=== PATIENT | female | born 1975 | race Caucasian/White ===

== ENCOUNTER → 2016-11-04 | Outpatient (CLI) | payer BC ==
[~2016-11-04] MED LIST: DAYPRO600 M1 PO; HYDROCODONE BIT1 T11 PO; MOTRIN800 MG PO; NAPROSYN500 MG PO; NKHM; NORCO 5-325 TA1 EACH PO
== END | disposition home or self-care (01) ==
LOC: RESCLI 08:07
DX: K04.7 Periapical abscess without sinus (principal); E66.09 Other obesity due to excess calories; F17.200 Nicotine dependence, unspecified, uncomplicated; Z68.30 Body mass index [BMI] 30.0-30.9, adult

== ENCOUNTER 2016-11-10 16:03 | Emergency (ER) | payer BC ==
[~2016-11-10] VITALS: Ht 162.5 cm; Wt 77.1 kg
[~2016-11-10 16:03] MED LIST changes: -NAPROSYN500 MG PO; -NORCO 5-325 TA1 EACH PO
[2016-11-10 16:09] VITALS: BP 166/79
[2016-11-10 16:58] LABS: BASO % 0.4 % (0.0-1.0); EOS # 0.1 10*3/uL (0.0-0.4); EOS % 1.7 % (1.0-4.0); HEMATOCRIT 36.5 % (37.0-47.0); HEMOGLOBIN 12.6 g/dl (12.0-16.0); LYMPH # 2.4 10*3/uL (1.3-4.4); LYMPH % 31.5 % (27.0-41.0); MEAN CELL VOLUME 89.9 fl (81.0-99.0); MEAN CORPUSCULAR HGB CONC 34.5 g/dl (33.0-37.0); MONO # 0.5 10*3/uL (0.1-1.0); MONO % 5.9 % (3.0-9.0); NEUT # 4.6 10*3/uL (2.3-7.9); NEUT % 60.4 % (47.0-73.0); PLATELET COUNT AUTOMATED 226 10*3/uL (130-400); RED BLOOD COUNT 4.06 10*6/uL (4.10-5.10); RED CELL DISTRI WIDTH 12.5 % (0-14.5); WHITE BLOOD COUNT 7.6 10*3/uL (4.8-10.8)
[2016-11-10 17:14] LABS: ALBUMIN 3.8 gm/dl (3.1-4.5); ALKALINE PHOSPHATASE 109 U/L (45-117); BUN 6 mg/dl (7-24); CHLORIDE 105 mmol/L (98-107); CREATININE 0.68 mg/dL (0.55-1.02); POTASSIUM 3.8 mmol/L (3.5-5.1); SGOT/AST 20 IU/L (3-35); SGPT/ALT 33 U/L (12-78); SODIUM 140 mmol/L (136-145); TOTAL PROTEIN 6.9 gm/dL (6.4-8.2)
[2016-11-10] MEDS ORDERED: NORCO 5-325 TA1 EACH PO (18:33)
[2016-11-10] MEDS ORDERED: NAPROSYN500 MG PO (18:33)
== END 2016-11-10 19:00 | disposition home or self-care (01) ==
LOC: ED 16:03
PROVIDERS: Physician Assistant
DX: K08.89 Other specified disorders of teeth and supporting structures (principal); F17.200 Nicotine dependence, unspecified, uncomplicated; Z98.51 Tubal ligation status; Z98.890 Other specified postprocedural states

== ENCOUNTER 2017-01-04 00:33 | Emergency (ER) | payer BC ==
[~2017-01-04] VITALS: Ht 162.5 cm; Wt 79.4 kg
[~2017-01-04 00:33] MED LIST changes: +NAPROSYN500 MG PO; +NORCO 5-325 TA1 EACH PO
[2017-01-04 00:39] VITALS: BP 118/78
== END 2017-01-04 01:10 | disposition home or self-care (01) ==
LOC: ED 00:33
DX: S96.812A Strain of other specified muscles and tendons at ankle and foot level, left foot, initial encounter (principal); W10.8XXA Fall (on) (from) other stairs and steps, initial encounter; Y93.89 Activity, other specified; Y92.89 Other specified places as the place of occurrence of the external cause; Y99.8 Other external cause status

== ENCOUNTER → 2017-04-28 | Outpatient (CLI) | payer OTHER | END | disposition home or self-care (01) | LOC: RESCLI 02:23 | DX: Z12.31 Encounter for screening mammogram for malignant neoplasm of breast (principal); K21.9 Gastro-esophageal reflux disease without esophagitis; E66.9 Obesity, unspecified; Z87.891 Personal history of nicotine dependence ==

== ENCOUNTER → 2017-06-04 | Outpatient (CLI) | payer OTHER | END | disposition home or self-care (01) | LOC: MAMMO 01:25 | DX: Z12.31 Encounter for screening mammogram for malignant neoplasm of breast (principal) ==

== ENCOUNTER → 2018-05-11 | Outpatient (CLI) | payer OTHER | END | disposition home or self-care (01) | LOC: RAD 09:52 → RESCLI 09:52 | DX: M25.552 Pain in left hip (principal); E66.09 Other obesity due to excess calories; Z79.899 Other long term (current) drug therapy; Z88.8 Allergy status to other drugs, medicaments and biological substances ==

== ENCOUNTER → 2019-04-01 | Outpatient (CLI) | payer OTHER ==
[2019-04-01 08:03] LABS: BASO % 0.6 % (0.0-1.0); EOS # 0.1 10*3/uL (0.0-0.4); EOS % 1.3 % (1.0-4.0); HEMATOCRIT 39.5 % (37.0-47.0); HEMOGLOBIN 13.4 g/dl (12.0-16.0); LYMPH # 1.8 10*3/uL (1.3-4.4); LYMPH % 25.4 % (27.0-41.0); MEAN CELL VOLUME 91.6 fl (81.0-99.0); MEAN CORPUSCULAR HGB 31.1 pg (27.0-31.0); MEAN CORPUSCULAR HGB CONC 33.9 g/dl (33.0-37.0); MEAN PLATELET VOLUME 10.5 fl (9.6-12.3); MONO # 0.4 10*3/uL (0.1-1.0); MONO % 6.3 % (3.0-9.0); NEUT # 4.6 10*3/uL (2.3-7.9); NEUT % 66.1 % (47.0-73.0); PLATELET COUNT AUTOMATED 256 10*3/uL (130-400); RED BLOOD COUNT 4.31 10*6/uL (4.10-5.10); RED CELL DISTRI WIDTH 12.5 % (0-14.5)
== END | disposition home or self-care (01) ==
LOC: LAB 07:25
PROVIDERS: Nurse Practitioner Women's Health
DX: N93.9 Abnormal uterine and vaginal bleeding, unspecified (principal); R53.83 Other fatigue

== ENCOUNTER → 2019-04-15 | Outpatient (CLI) | payer OTHER | END | disposition home or self-care (01) | LOC: US 00:42 | DX: N83.201 Unspecified ovarian cyst, right side (principal); N93.9 Abnormal uterine and vaginal bleeding, unspecified ==

== ENCOUNTER → 2019-04-18 | Outpatient (CLI) | payer OTHER | END | disposition home or self-care (01) | LOC: MAMMO 00:54 | DX: Z12.31 Encounter for screening mammogram for malignant neoplasm of breast (principal) ==

== ENCOUNTER 2019-06-02 09:04 | Emergency (ER) | payer OTHER ==
[~2019-06-02] VITALS: Wt 82.6 kg
[2019-06-02] MEDS ORDERED: CONTRAVE ER 8-1 EACH PO (09:26)
[2019-06-02] MEDS ORDERED: SEASONIQUE PO (09:26)
[2019-06-02 09:36] LABS: BASO % 0.5 % (0.0-1.0); EOS # 0.1 10*3/uL (0.0-0.4); EOS % 1.8 % (1.0-4.0); HEMATOCRIT 38.6 % (37.0-47.0); HEMOGLOBIN 13.2 g/dl (12.0-16.0); LYMPH # 1.2 10*3/uL (1.3-4.4); LYMPH % 15.8 % (27.0-41.0); MEAN CELL VOLUME 89.8 fl (81.0-99.0); MEAN CORPUSCULAR HGB 30.7 pg (27.0-31.0); MEAN CORPUSCULAR HGB CONC 34.2 g/dl (33.0-37.0); MEAN PLATELET VOLUME 10.4 fl (9.6-12.3); MONO # 0.5 10*3/uL (0.1-1.0); MONO % 5.9 % (3.0-9.0); NEUT # 5.8 10*3/uL (2.3-7.9); NEUT % 75.7 % (47.0-73.0); PLATELET COUNT AUTOMATED 228 10*3/uL (130-400); RED CELL DISTRI WIDTH 12.9 % (0-14.5); WHITE BLOOD COUNT 7.6 10*3/uL (4.8-10.8)
[2019-06-02 09:46] LABS: ACT PARTIAL THROMBO TIME 22.9 SECONDS (20.0-32.1); INTERNATIONAL NORM RATIO 0.9 (2.0-3.5)
[2019-06-02 09:53] LABS: ALBUMIN 3.9 gm/dl (3.1-4.5); ALKALINE PHOSPHATASE 128 U/L (45-117); BUN 5 mg/dl (7-24); CHLORIDE 105 mmol/L (98-107); CREATININE 0.89 mg/dL (0.55-1.02); POTASSIUM 3.9 mmol/L (3.5-5.1); SGOT/AST 13 IU/L (3-35); SGPT/ALT 26 U/L (12-78); SODIUM 138 mmol/L (136-145); TOTAL PROTEIN 7.6 gm/dL (6.4-8.2)
[2019-06-02 09:56] LABS: TROPONIN I < 0.015 ng/ml (<0.045)
[2019-06-02 14:19] VITALS: BP 110/67
== END 2019-06-02 15:30 | disposition home or self-care (01) ==
LOC: ED 09:04
PROVIDERS: Emergency Medicine
DX: R06.02 Shortness of breath (principal); R42 Dizziness and giddiness; R07.89 Other chest pain; F17.200 Nicotine dependence, unspecified, uncomplicated; Z79.899 Other long term (current) drug therapy; Z98.890 Other specified postprocedural states

== ENCOUNTER 2019-10-16 10:48 | Emergency (ER) | payer OTHER ==
[~2019-10-16] VITALS: Ht 162.5 cm; Wt 87.1 kg
[~2019-10-16 10:48] MED LIST changes: +CONTRAVE ER 8-1 EACH PO; +SEASONIQUE PO
[2019-10-16 11:01] VITALS: BP 105/63
[2019-10-16] MEDS ORDERED: Motrin,Rufen800 MG PO (12:02)
== END 2019-10-16 12:10 | disposition home or self-care (01) ==
LOC: ED 10:48
DX: S92.355A Nondisplaced fracture of fifth metatarsal bone, left foot, initial encounter for closed fracture (principal); Z79.899 Other long term (current) drug therapy; W18.31XA Fall on same level due to stepping on an object, initial encounter; Y93.89 Activity, other specified; Y92.89 Other specified places as the place of occurrence of the external cause; Y99.8 Other external cause status

== ENCOUNTER → 2019-11-01 | Outpatient (CLI) | payer OTHER ==
[~2019-11-01] MED LIST changes: +Motrin,Rufen800 MG PO
== END | disposition home or self-care (01) ==
LOC: RAD 00:47
PROVIDERS: ATTEND Orthopaedic Surgery
DX: S92.352D Displaced fracture of fifth metatarsal bone, left foot, subsequent encounter for fracture with routine healing (principal); X58.XXXD Exposure to other specified factors, subsequent encounter

== ENCOUNTER → 2019-12-01 | Outpatient (CLI) | payer OTHER | END | disposition home or self-care (01) | LOC: RAD 00:16 | PROVIDERS: ATTEND Orthopaedic Surgery | DX: S92.352D Displaced fracture of fifth metatarsal bone, left foot, subsequent encounter for fracture with routine healing (principal); X58.XXXD Exposure to other specified factors, subsequent encounter ==

== ENCOUNTER → 2019-12-30 | Outpatient (CLI) | payer OTHER | END | disposition home or self-care (01) | LOC: RAD 00:45 | PROVIDERS: ATTEND Orthopaedic Surgery | DX: S92.352D Displaced fracture of fifth metatarsal bone, left foot, subsequent encounter for fracture with routine healing (principal); X58.XXXD Exposure to other specified factors, subsequent encounter ==

== ENCOUNTER → 2020-01-30 | Outpatient (CLI) | payer OTHER | END | disposition home or self-care (01) | LOC: RAD 01-29 10:43 | PROVIDERS: ATTEND Orthopaedic Surgery | DX: S92.352D Displaced fracture of fifth metatarsal bone, left foot, subsequent encounter for fracture with routine healing (principal); X58.XXXD Exposure to other specified factors, subsequent encounter ==

== ENCOUNTER → 2021-01-08 | Outpatient (CLI) | payer OTHER | END | disposition home or self-care (01) | LOC: US 00:45 | PROVIDERS: ATTEND Nurse Practitioner Primary Care | DX: K76.0 Fatty (change of) liver, not elsewhere classified (principal); R74.8 Abnormal levels of other serum enzymes ==

== ENCOUNTER → 2021-08-14 | Outpatient (CLI) | payer OTHER | END | disposition home or self-care (01) | LOC: RAD 09:27 | PROVIDERS: ATTEND Orthopaedic Surgery | DX: M25.512 Pain in left shoulder (principal) ==

== ENCOUNTER → 2022-03-07 | Outpatient (CLI) | payer OTHER ==
[2022-03-07 07:58] LABS: BASO % 0.8 % (0.0-1.0); EOS # 0.1 10*3/uL (0.0-0.4); EOS % 2.3 % (1.0-4.0); HEMATOCRIT 40.2 % (37.0-47.0); LYMPH # 1.9 10*3/uL (1.3-4.4); LYMPH % 35.3 % (27.0-41.0); MEAN CELL VOLUME 90.7 fl (81.0-99.0); MEAN CORPUSCULAR HGB 29.6 pg (27.0-31.0); MEAN CORPUSCULAR HGB CONC 32.6 g/dl (33.0-37.0); MEAN PLATELET VOLUME 10.2 fl (9.6-12.3); MONO # 0.4 10*3/uL (0.1-1.0); MONO % 8.3 % (3.0-9.0); NEUT # 2.8 10*3/uL (2.3-7.9); NEUT % 53.1 % (47.0-73.0); PLATELET COUNT AUTOMATED 267 10*3/uL (130-400); RED BLOOD COUNT 4.43 10*6/uL (4.10-5.10); RED CELL DISTRI WIDTH 12.7 % (0-14.5); WHITE BLOOD COUNT 5.3 10*3/uL (4.8-10.8)
[2022-03-07 08:23] LABS: ALKALINE PHOSPHATASE 124 U/L (46-116); BUN 8 mg/dl (9-23); CHLORIDE 105 mmol/L (98-107); POTASSIUM 3.7 mmol/L (3.4-5.1); SGPT/ALT 14 U/L (10-49); TOTAL PROTEIN 6.9 gm/dL (6.0-8.0)
== END | disposition home or self-care (01) ==
LOC: LAB 07:32
PROVIDERS: ATTEND Student in an Organized Health Care Education/Training Program
DX: Z00.00 Encounter for general adult medical examination without abnormal findings (principal); Z13.1 Encounter for screening for diabetes mellitus

== ENCOUNTER → 2022-03-19 | Outpatient (CLI) | payer OTHER | END | disposition home or self-care (01) | LOC: MAMMO 02:35 | PROVIDERS: ATTEND Family Medicine | DX: Z12.31 Encounter for screening mammogram for malignant neoplasm of breast (principal) ==

== ENCOUNTER 2023-03-19 13:47 | Emergency (ER) | payer OTHER ==
[~2023-03-19] VITALS: Wt 95.3 kg
[2023-03-19 14:04] VITALS: BP 134/87
[2023-03-19 15:23] LABS: BASO # 0.1 10*3/uL (0.0-0.1); BASO % 0.5 % (0.0-1.0); EOS # 0.2 10*3/uL (0.0-0.4); HEMATOCRIT 37.8 % (37.0-47.0); LYMPH # 1.7 10*3/uL (1.3-4.4); LYMPH % 15.7 % (27.0-41.0); MEAN CELL VOLUME 91.5 fl (81.0-99.0); MEAN CORPUSCULAR HGB CONC 32.8 g/dl (33.0-37.0); MONO # 0.8 10*3/uL (0.1-1.0); MONO % 7.6 % (3.0-9.0); PLATELET COUNT AUTOMATED 327 10*3/uL (130-400); RED BLOOD COUNT 4.13 10*6/uL (4.10-5.10); RED CELL DISTRI WIDTH 12.9 % (0-14.5); WHITE BLOOD COUNT 10.9 10*3/uL (4.8-10.8)
[2023-03-19 15:50] LABS: ALKALINE PHOSPHATASE 201 U/L (46-116); BUN 7 mg/dl (9-23); CHLORIDE 106 mmol/L (98-107); SGPT/ALT 71 U/L (5-49); TOTAL PROTEIN 7.4 gm/dL (6.0-8.0)
[2023-03-19] MEDS ORDERED: PROVENTIL HFA6.7 GM INH (17:05)
[2023-03-19] MEDS ORDERED: VIBRAMYCIN100 MG PO (17:05)
[2023-03-19] MEDS ORDERED: PREDNISONE50 MG PO (17:05)
[2023-03-19] MEDS ORDERED: ALBUTEROL2.5 MG/0.5 INH (17:10)
== END 2023-03-19 17:36 | disposition home or self-care (01) ==
LOC: ED 13:47
PROVIDERS: Family Medicine
DX: J45.901 Unspecified asthma with (acute) exacerbation (principal); J32.9 Chronic sinusitis, unspecified; Z90.89 Acquired absence of other organs; Z98.890 Other specified postprocedural states; Z98.51 Tubal ligation status; F17.210 Nicotine dependence, cigarettes, uncomplicated; Z20.822 Contact with and (suspected) exposure to COVID-19

== ENCOUNTER → 2024-04-06 | Outpatient (CLI) | payer OTHER ==
[~2024-04-06] MED LIST changes: +ALBUTEROL2.5 MG/0.5 INH; +PREDNISONE50 MG PO; +PROVENTIL HFA6.7 GM INH; +VIBRAMYCIN100 MG PO
[2024-04-06 07:32] LABS: MEAN CORPUSCULAR HGB 29.7 pg (27.0-31.0); MEAN CORPUSCULAR HGB CONC 34.2 g/dl (33.0-37.0); MEAN PLATELET VOLUME 10.2 fl (9.6-12.3); RED BLOOD COUNT 4.37 10*6/uL (4.10-5.10); RED CELL DISTRI WIDTH 13.4 % (0-14.5); WHITE BLOOD COUNT 7.7 10*3/uL (4.8-10.8)
[2024-04-06 08:24] LABS: ALKALINE PHOSPHATASE 136 U/L (46-116); BUN 9 mg/dl (9-23); CHLORIDE 105 mmol/L (98-107); CHOLESTEROL 185 mg/dL (<200); LDL CHOLESTEROL 113 mg/dL (9-159); POTASSIUM 3.8 mmol/L (3.4-5.1); SGPT/ALT 30 U/L (5-49); TOTAL PROTEIN 6.9 gm/dL (6.0-8.0); TRIGLYCERIDES 119 mg/dl (<150)
== END | disposition home or self-care (01) ==
LOC: LAB 07:04
PROVIDERS: ATTEND Physician Assistant
DX: Z00.00 Encounter for general adult medical examination without abnormal findings (principal); Z12.11 Encounter for screening for malignant neoplasm of colon

== ENCOUNTER → 2024-04-07 | Outpatient (CLI) | payer OTHER | END | disposition home or self-care (01) | LOC: MAMMO 00:20 | PROVIDERS: ATTEND Physician Assistant | DX: Z12.31 Encounter for screening mammogram for malignant neoplasm of breast (principal); R92.333 Mammographic heterogeneous density, bilateral breasts; R92.323 Mammographic fibroglandular density, bilateral breasts ==

== ENCOUNTER → 2024-10-05 | Outpatient (CLI) | payer OTHER | END | disposition home or self-care (01) | LOC: RESCLI 11:00 → RAD 11:00 | PROVIDERS: ATTEND Internal Medicine | DX: R68.84 Jaw pain (principal) ==